=== PATIENT | male | born 1995 | race Caucasian/White ===

== ENCOUNTER 2023-05-02 17:01 | Emergency (ER) | payer OTHER ==
[2023-05-02 17:08] VITALS: RESP 18; TEMP 98.1; BMI 33.7
[2023-05-02] MEDS ORDERED: morphine CARPU-JECT 4 MG/1 ML DISP.SYRIN IVPUSH ONE (17:25)
[2023-05-02] MEDS ORDERED: ONDANSETRON 4 MG/2 ML VIAL IVPUSH ONE (17:26)
[2023-05-02] MEDS ORDERED: LACTATED RINGERS SOLUTION 1000 ML INFUS.BAG IV ONE (17:26)
[2023-05-02] MEDS ORDERED: ONDANSETRON 4 MG/2 ML VIAL ONE (17:57)
[2023-05-02] MEDS ORDERED: morphine SULFATE 4 MG/ML VIAL ONE (17:57)
[2023-05-02 18:16] LABS: BASO % 1.1 % (0-2.0); EOS % 1.2 % (0-4.5); HEMATOCRIT 50.1 % (35.4-49); HEMOGLOBIN 16.6 GM/dL (11.7-16.9); LYMPH % 31.3 % (8-40); MCH 27.9 pg (25.7-33.7); MCHC 33.1 g/dl (32.0-35.9); MEAN CELL VOLUME 84.5 fl (80-96); MONO % 7.7 % (3.8-10.2); NEUT % 58.7 % (42.8-82.8); PLATELET COUNT 224 10^3/uL (134-434); RBC 5.93 M/mm3 (4.00-5.60); RDW 13.3 % (11.9-15.9); WHITE BLOOD COUNT 11.7 K/mm3 (4.0-10.0)
[2023-05-02] MEDS ORDERED: ACETAMINOPHEN 1000 MG/100 ML BAG IVPB ONE (18:34)
[2023-05-02 18:36] LABS: CALCIUM 10.2 mg/dL (8.5-10.1)
[2023-05-02 18:37] LABS: ALBUMIN 4.8 g/dl (3.4-5.0); BLOOD UREA NITROGEN 14.7 mg/dL (7-18)
[2023-05-02] MEDS ORDERED: ACETAMINOPHEN INJECTION 100 ML IVPB ONE (18:39)
[2023-05-02 18:40] LABS: CREATININE 1.4 mg/dL (0.55-1.3)
[2023-05-02 18:41] LABS: BILIRUBIN,TOTAL 0.4 mg/dL (0.2-1); TOT PROT 8.1 g/dl (6.4-8.2)
[2023-05-02 19:51] LABS: EPI CELLS >36 /uL (0-25.1); HYALINE CASTS 1 /uL (0-3.1); PH,URINE >= 9.0 (5.0-8.0); URINE APPEARANCE CLOUDY; URINE BACTERIA 32 /uL (0-1359); URINE BILIRUBIN NEGATIVE (NEGATIVE); URINE COLOR YELLOW; URINE GLUCOSE (UA) NEGATIVE (NEGATIVE); URINE KETONE 1+ (NEGATIVE); URINE LEUK ESTERASE NEGATIVE (NEGATIVE); URINE NITRITE NEGATIVE (NEGATIVE); URINE PROTEIN TRACE (NEGATIVE); URINE RBC 117 /uL (0-23.9); URINE UROBILINOGEN 0.2 mg/dL (0.2-1.0); URINE WBC 14 /uL (0-25.8)
[2023-05-02 20:56] VITALS: BP 132/80; PULSE 80
== END 2023-05-02 20:56 | disposition home or self-care (01) ==
LOC: JER 17:01
PROC: 3E033NZ Introduction of Analgesics, Hypnotics, Sedatives into Peripheral Vein, Percutaneous Approach (ICD-10-PCS; principal; 2023-05-02)
PROC: 3E033NZ Introduction of Analgesics, Hypnotics, Sedatives into Peripheral Vein, Percutaneous Approach (ICD-10-PCS; 2023-05-02)
PROC: 3E033GC Introduction of Other Therapeutic Substance into Peripheral Vein, Percutaneous Approach (ICD-10-PCS; 2023-05-02)
DX: N20.0 Calculus of kidney (principal); N13.30 Unspecified hydronephrosis
CPT/HCPCS: 36415; 74176-TC; 80053; 81003; 85025; 87086; 99284-25

== ENCOUNTER 2024-02-21 00:44 | Emergency (ER) | payer OTHER ==
[2024-02-21 00:52] VITALS: BP 121/78; PULSE 89; RESP 16; TEMP 97.3; BMI 33.8
[2024-02-21] MEDS ORDERED: DIPHTH,PERTUSS(ACELL),TET 0.5 ML DISP.SYRIN IM ONE (01:03)
[2024-02-21] MEDS: DIPHTH,PERTUSS(ACELL),TET 0.5 ML DISP.SYRIN IM ONE (01:04)
== END 2024-02-21 01:10 | disposition home or self-care (01) ==
LOC: FER 00:44
PROC: 3E0234Z Introduction of Serum, Toxoid and Vaccine into Muscle, Percutaneous Approach (ICD-10-PCS; principal; 2024-02-21)
DX: S81.852A Open bite, left lower leg, initial encounter (principal); W54.0XXA Bitten by dog, initial encounter; Z23 Encounter for immunization
CPT/HCPCS: 90471; 90715; 99284-25